=== PATIENT | female | born 2000 | race Caucasian/White ===

== ENCOUNTER 2021-04-11 18:25 | Emergency (ER) | payer OTHER ==
[~2021-04-11] VITALS: Ht 170.2 cm; Wt 113.4 kg
[2021-04-11 18:26] VITALS: BP 130/89
[2021-04-11 20:44] VITALS: BP 123/76
[2021-04-11 20:47] LABS: BASOPHILS % (AUTO) 0.5 % (0.0-5.0); EOSINOPHILS % (AUTO) 2.7 % (0.0-8.0); HEMATOCRIT 41.5 % (36-48); LYMPHOCYTES % (AUTO) 20.4 % (21.0-51.0); MEAN CORPUSCULAR HEMOGLOBIN 29.1 pg (27.0-33.0); MEAN CORPUSCULAR HGB CONC 33.3 g/dL (32.0-36.0); MEAN CORPUSCULAR VOLUME 87.6 fL (80-100); MONOCYTES % (AUTO) 8.5 % (3.0-13.0); NEUTROPHILS % (AUTO) 67.7 % (40.0-77.0); PLATELET COUNT (AUTO) 322 K/uL (130-400); RED BLOOD CELL COUNT(AUTO) 4.74 MIL/uL (4.00-5.50); RED CELL DISTRIBUTION WIDTH 13.6 % (11.0-15.5); WHITE BLOOD COUNT (AUTO) 9.7 K/uL (4.8-10.8)
[2021-04-11 20:59] LABS: CREATININE 0.8 mg/dL (0.5-1.5); POTASSIUM 3.6 mmol/L (3.5-5.1)
[2021-04-11 21:04] LABS: ALBUMIN 3.8 g/dL (3.5-5.0); BILIRUBIN,TOTAL 0.2 mg/dL (0.2-1.0); TOTAL PROTEIN, SERUM 7.8 g/dL (6.0-8.3)
[2021-04-11 22:08] LABS: APPEARANCE,URINE Clear (CLEAR); BILIRUBIN,URINE Negative (NEGATIVE); COLOR,URINE Yellow (YELLOW); GLUCOSE, URINE (UA) Negative (NEGATIVE); KETONES,URINE Negative (NEGATIVE); LEUKOCYTE ESTERASE ,URINE Negative (NEGATIVE); NITRATE,URINE Negative (NEGATIVE); OCCULT BLOOD,URINE Moderate (NEGATIVE); PH,URINE 7.5 (5.0-8.0); PROTEIN,URINE Negative (NEGATIVE)
[2021-04-11 22:11] LABS: HCG,QUAL RESULT NEGATIVE (NEGATIVE)
[2021-04-11 22:14] LABS: BACTERIA,URINE Few /HPF (None Seen); MUCUS,URINE Rare LPF (None Seen); RBC,URINE 0-1 /HPF (0-1); SQUAMOUS EPITHELIAL CELL,UR Few /HPF (0-2); WBC,URINE 0-1 /HPF (0-1)
[2021-04-11 22:18] VITALS: BP 111/76
== END 2021-04-11 22:33 | disposition home or self-care (01) ==
LOC: EDH 18:25
DX: R53.1 Weakness (principal); R42 Dizziness and giddiness; J02.9 Acute pharyngitis, unspecified; Z20.822 Contact with and (suspected) exposure to COVID-19; E11.9 Type 2 diabetes mellitus without complications; F17.200 Nicotine dependence, unspecified, uncomplicated
CPT/HCPCS: 36415; 80053; 81001; 81025; 82550; 85025; 87635; 87804 ×2; 87880; 99283; C9803

== ENCOUNTER 2025-02-07 07:38 | Emergency (ER) | payer OTHER ==
[~2025-02-07] VITALS: Ht 172.7 cm; Wt 129.7 kg
[2025-02-07] MEDS ORDERED: ONDA-243 PO (07:51)
--- NOTE | 2025-02-07 07:52 | ERN ---
General Chief Complaint: Nausea,Vomiting,Diarrhea Stated Complaint: ABD CRAMPING, N/V/D Time Seen by MD: 07:41 History of Present Illness Initial Comments 24-year-old female, history of prediabetes nonmedicated, obesity, who presents for nausea or vomiting diarrhea beginning about 12 hours ago. Patient reports she was in her normal state of health yesterday. Around 8:00 p.m. on 02/06/2025 she began vomiting. Seven multiple episodes of non bilious nonbloody vomit. She also reports multiple episodes of watery diarrhea throughout the night. No fevers. No abdominal pain although generalized abdominal cramping. No cough or congestion. She was trying to drink water and take Pepto-Bismol but she continues to vomit this up. She denies . She does report her nephew a few days ago had similar symptoms. Allergies: Coded Allergies: amoxicillin (Unverified Allergy, Unknown, 02/07/25) Home Meds Active Scripts Ondansetron (Ondansetron Odt) 4 Mg Tab.rapdis, 1 TAB PO Q6HPRN PRN for nausea/vomiting for 3 Days, #9 TAB 0 Refills Prov:KIMBERLEY TAYLOR DO 02/07/25 Past Medical History Past Medical History: Diabetes-Type II Medical History Other: HERPES Past Surgical History: None Family History Family History: Negative Social History Social History: Smokers, ETOH, Other Female( History) LMP: Jan 28, 2025 ROS Dictation CONSTITUTIONAL: No chills, no fever, no weakness, no diaphoresis, no malaise. HEAD/FACE: No signs of trauma. EENT: No eye pain, no blurred vision, no tearing, no double vision, no ear pain, no ear discharge, no nose pain, no nasal congestion, no throat pain, no throat swelling, no mouth pain. RESPIRATORY: No cough, no orthopnea, no SOB, no stridor, no wheezing. CARDIOVASCULAR: No chest pain, no edema, no palpitations, no syncope. GASTROINTESTINAL/ABDOMINAL: Abdominal cramping, multiple episodes of vomiting and watery diarrhea GENITOURINARY: No abnormal discharge, no dysuria, no frequent urination, no hematuria. No complaints of pain in the genitals. MUSCULOSKELETAL: No back pain, no gout, no joint pain, no joint swelling, no muscle pain, no muscle stiffness, no neck pain. INTEGUMENTARY: No change in color, no change in hair/nails, no dryness, no lesion, no lumps, no rash. NEUROLOGICAL/PSYCH: No anxiety, not depressed, no emotional problem, no headache, no numbness, no pre-existing deficit, no history of seizures, no tremors, no weakness. HEMATOLOGIC/LYMPHATIC: Not anemic, no history of blood clots, no apparent bleeding, no bruising, glands not swollen. All Systems Negative, Except as Noted. Physical Exam Physical Exam Dictation VITAL SIGNS: Reviewed. GENERAL APPEARANCE: Alert, oriented x3, no acute distress, obese. Dry mucous membranes. HEAD AND FACE: Non-traumatic. EYES: PERRL, pink conjunctivas, eyelid no trauma, anterior chamber clear. EARS: Pinnas intact and no signs of trauma or erythema. Ear canals clear and no discharge. TMs no erythema. NOSE: No discharge, no bleeding. OROPHARYNX: Mouth normal, teeth no caries, tongue pink. Pharynx clear, no erythema. Tonsils no exudates, no abscesses noted. Mucous membrane moist. NECK: Supple, non-tender, no thyromegaly, no masses, no JVD, no bruits. BREAST: Deferred. CHEST: No tenderness, no crepitus, no paradoxical movement, no retractions. LUNGS: Clear, well-ventilated, symmetric, no rales, no wheezing, no rhonchi, no stridor, good breath sounds bilaterally. HEART: Regular rate, regular rhythm, no murmur, no gallops. VASCULAR: No peripheral edema. ABDOMEN: Soft, positive bowel sounds, nondistended, no guarding, nontender, no rebound, no masses no hepatomegaly, no splenomegaly, no Parker's sign, no hernias. RECTAL: Deferred. GENITAL: Deferred. NEUROLOGICAL: Normal speech, gross motor function intact, gross sensory function intact. MUSCULOSKELETAL: Neck nontender, full range of motion, back nontender, full range of motion. EXTREMITIES: Nontender, full range of motion. SKIN: Color pink, dry, no turgor, no rash, no lacerations, no abrasions, no contusions. LYMPHATICS: Deferred. Results Laboratory and Microbiology Lab and Micro Result Laboratory Tests Test 02/07/25 08:08 White Blood Count 8.7 K/uL (4.8-10.8) Red Blood Count 4.69 MIL/uL (4.00-5.50) Hemoglobin 13.7 g/dL (12.0-16.0) Hematocrit 40.8 % (36-48) Mean Corpuscular Volume 87.0 fL (79-99) Mean Corpuscular Hemoglobin 29.2 pg (27.0-33.0) Mean Corpuscular Hemoglobin Concent 33.6 g/dL (32.0-36.0) Red Cell Distribution Width 13.7 % (11.0-15.5) Platelet Count 308 K/uL (130-400) Mean Platelet Volume 10.6 fL (7.5-10.5) H Immature Granulocyte % (Auto) 0.3 % (0-1) Neutrophils (%) (Auto) 81.4 % (40.0-77.0) H Lymphocytes (%) (Auto) 8.7 % (21.0-51.0) L Monocytes (%) (Auto) 8.3 % (3.0-13.0) Eosinophils (%) (Auto) 1.2 % (0.0-8.0) Basophils (%) (Auto) 0.1 % (0.0-5.0) Neutrophils # (Auto) 7.1 K/uL (1.8-7.7) Lymphocytes # (Auto) 0.8 K/uL (1.0-4.8) L Monocytes # (Auto) 0.7 K/uL (0.1-1.0) Eosinophils # (Auto) 0.10 K/uL (0.00-0.70) Basophils # (Auto) 0.01 K/uL (0.00-0.20) Absolute Immature Granulocyte (auto 0.03 K/uL (0-1) Nucleated Red Blood Cells 0.0 % (0.0-0.19) Sodium Level 140 mmol/L (136-145) Potassium Level 3.9 mmol/L (3.5-5.1) Chloride Level 104 mmol/L (101-111) Carbon Dioxide Level 24 mmol/L (21-32) Blood Urea Nitrogen 14 mg/dL (7-18) Creatinine 0.9 mg/dL (0.5-1.0) Glomerular Filtration Rate Calc 92 mL/min (>90) Random Glucose 110 mg/dL (70-105) H Total Calcium 8.7 mg/dL (8.5-10.1) Total Bilirubin 0.5 mg/dL (0.2-1.0) Direct Bilirubin 0.2 mg/dL (0.0-0.3) Aspartate Amino Transf (AST/SGOT) 37 U/L (10-37) Alanine Aminotransferase (ALT/SGPT) 63 U/L (12-78) Alkaline Phosphatase 112 U/L (50-136) Total Protein 7.9 g/dL (6.0-8.3) Albumin 3.8 g/dL (3.5-5.0) Lipase 26 U/L (16-77) Human Chorionic Gonadotropin, Quant 0 mIU/mL (0-5) MDM CC: n/v/d x 12 hours Historian: patient Comorbidities: obesity, pre-diabetes Limitations by social determinates of health: none Ddx: gastroenteritis, surgical pathology, dehydration, electrolyte abnormality, other VS: tachy 108, otherwise stable. Labs (independently interpreted by me): CBC no leukocytosis, L shift, no bands. BMP stable. HCG neg. LFTs & lipase normal. Treatment in ED: 1L LR, zofran Reassment: pain free, PO tolerant, non-toxic, VSS. Symptoms are most consistent with a gastroenteritis. Very low suspicion for any surgical pathology, SIRS, sepsis, significant dehydration or p.o. intolerance. Patient was nontoxic. At this point in time we will discharge with a prescription for ondansetron and recommend supportive care and plenty of liquid intake. ED Course Orders Procedure Category Date Status Time Cbc With Differential LAB 02/07/25 In Process 07:48 Hcg,Quantitative LAB 02/07/25 Complete 07:48 Lactated Ringers PHA 02/07/25 Complete 1000ml (Lactated 08:00 Ondansetron 4mg Inj PHA 02/07/25 Complete (Zofran 4mg Inj) 08:00 Lipase LAB 02/07/25 Complete 07:48 Basic Metabolic Panel LAB 02/07/25 Complete 07:48 Hepatic Function Panel LAB 02/07/25 Complete 07:48 Current Medications Medications (Trade) Dose Ordered Sig/Ronnie Route PRN Reason Start Time Stop Time Status Last Admin Dose Admin Lactated Ringer's 1,000 ml @ 0 mls/hr ONCE ONCE IV 02/07/25 08:00 02/07/25 08:01 DC 02/07/25 08:07 Ondansetron HCl (zoFRAN 4MG INJ) 4 mg ONCE ONCE IVP 02/07/25 08:00 02/07/25 08:01 DC 02/07/25 08:07 Vital Signs Date Time Temp Pulse Resp B/P (MAP) Pulse Ox O2 Delivery O2 Flow Rate FiO2 02/07/25 07:40 98.2 108 20 125/83 97 Room Air* 0 21 02/07/25 07:40 98.2 108 20 125/83 97 Room Air 0 DX & DISP Disposition: Discharge Departure Impression: Primary Impression: Gastroenteritis Additional Impression: Mild dehydration Condition: Stable Scripts Ondansetron (Ondansetron Odt) 4 Mg Tab.rapdis 1 TAB PO Q6HPRN PRN for nausea/vomiting for 3 Days, #9 TAB 0 Refills Prov: KIMBERLEY TAYLOR DO 02/07/25 Additional Instructions: Your symptoms are most consistent with gastroenteritis. This is often caused by a viral infection and will clear on its own. Comments symptoms include nausea, vomiting, diarrhea, abdominal cramping and sometimes low-grade fever. Your vital signs has been stable here in the ED. Your blood work (CBC, BMP, hCG, liver function tests, lipase) is unremarkable. You received IV fluids and ondansetron here in the ED. I have prescribed ondansetron dissolvable tabs. You can use this up to 3 times a day as needed to prevent vomiting. Be sure to drink plenty of liquids. An electrolyte solution such as Pedialyte or Gatorade has a good choice. Drink small sips frequently if your still vomiting. Start with bland foods such as bananas, rice, applesauce, and toast. Advance her diet slowly as tolerated. Avoid dairy, spicy, fatty, or greasy foods until your fully recovered. You can take [id number] Tylenol as needed for pain or discomfort. Please return to the emergency department if you have any significant d ehydration, persistent vomiting lasting more than 2-3 days, high fever, blood in the vomit or the stool, severe abdominal pain, or any other concerning symptom. Please follow up with your primary doctor if your symptoms do not improve within 48 hours. Referrals: SELF,REFERRAL (PCP) KIMBERLEY TAYLOR DO February 07, 2025 07:51
[2025-02-07] MEDS: ondanSETRON 4MG INJ IVP ONE (08:07)
[2025-02-07] MEDS: LACTATED RINGERS 1000ML 1,000 ML IV ONE (08:07)
[2025-02-07 08:18] LABS: BASOPHILS # (AUTO) 0.01 K/uL (0.00-0.20); BASOPHILS % (AUTO) 0.1 % (0.0-5.0); EOSINOPHILS % (AUTO) 1.2 % (0.0-8.0); HEMATOCRIT 40.8 % (36-48); IMMATURE GRANULOCYTE ABSOLUTE 0.03 K/uL (0-1); LYMPHOCYTES # (AUTO) 0.8 K/uL (1.0-4.8); LYMPHOCYTES % (AUTO) 8.7 % (21.0-51.0); MEAN CORPUSCULAR HEMOGLOBIN 29.2 pg (27.0-33.0); MEAN CORPUSCULAR HGB CONC 33.6 g/dL (32.0-36.0); MONOCYTES # (AUTO) 0.7 K/uL (0.1-1.0); MONOCYTES % (AUTO) 8.3 % (3.0-13.0); NEUTROPHILS # (AUTO) 7.1 K/uL (1.8-7.7); NEUTROPHILS % (AUTO) 81.4 % (40.0-77.0); PLATELET COUNT (AUTO) 308 K/uL (130-400); RED BLOOD CELL COUNT(AUTO) 4.69 MIL/uL (4.00-5.50); RED CELL DISTRIBUTION WIDTH 13.7 % (11.0-15.5); WHITE BLOOD COUNT (AUTO) 8.7 K/uL (4.8-10.8)
[2025-02-07 08:29] LABS: CREATININE 0.9 mg/dL (0.5-1.0); POTASSIUM 3.9 mmol/L (3.5-5.1)
[2025-02-07 08:40] LABS: ALBUMIN 3.8 g/dL (3.5-5.0); BILIRUBIN,DIRECT 0.2 mg/dL (0.0-0.3); BILIRUBIN,TOTAL 0.5 mg/dL (0.2-1.0); TOTAL PROTEIN, SERUM 7.9 g/dL (6.0-8.3)
[2025-02-07 09:01] VITALS: BP 107/50; PULSE 87; RESP 16; TEMP 98.6; O2SAT 97
== END 2025-02-07 09:51 | disposition home or self-care (01) ==
LOC: EDH 07:38
DX: K52.9 Noninfective gastroenteritis and colitis, unspecified (principal); E86.0 Dehydration; E11.9 Type 2 diabetes mellitus without complications; E66.9 Obesity, unspecified; R10.2 Pelvic and perineal pain; F17.200 Nicotine dependence, unspecified, uncomplicated; Z88.0 Allergy status to penicillin
CPT/HCPCS: 99283; 96374; 96361; 80076; 80048; 84702; 83690; 85025; 36415; J7120; J2405